=== PATIENT | male | born 2000 | race African-American/Black ===

== ENCOUNTER 2024-02-23 16:46 | Emergency (ER) | payer SELFPAY ==
[2024-02-23] VITALS (9 sets, daily range): BP systolic 151–160; BP diastolic 84–106; PULSE 74–88; RESP 14–18; TEMP 36.7; O2SAT 92–98
--- NOTE | ~2024-02-23 | CT_ITS ---
EXAMINATION: CT brain wo con DATE: 02/23/2024 17:47 INDICATION: Syncopal episode, headache TECHNIQUE: Computed tomography (CT) of the head was performed without intravenous contrast. The mA wa s adjusted according to patient size. Iterative reconstruction technique was employed. Exam dose: 68 1.00 mGy-cm total exam DLP. COMPARISON: None FINDINGS: Cavum septum pellucidum and cavum vergae, anatomic variants; cavum septum pellucidum is par ticularly prominent anteriorly, with splaying of the frontal horns. Otherwise no intracranial mass lesion or hemorrhage, midline shift or mass effect is noted. Normal raphael-white matter differentiation. No subdural or epidural hematoma. No fracture or bone destruction of the cranial vault. The mastoid air cells and included paranasal si nuses are normally developed and aerated. IMPRESSION: Prominent cavum septum pellucidum, cavum vergae Reviewed, dictated and finalized at [facility]. Reviewed, dictated and finalized at [facility].
[2024-02-23 16:54] LABS: Glucose Point of Care 102 mg/dl (65-105)
--- NOTE | 2024-02-23 17:03 | ECG_ITS ---
Test Date: 2024-02-23 17:12:12 Measurements Intervals [place] Rate: 75 P: 57 RI: 152 QRS: 70 QRSD: 105 T: 34 QT: 387 QTc: 433 Interpretive Statements SINUS RHYTHM WITH SINUS ARRHYTHMIA NONSPECIFIC ST ELEVATION IN DIFFUSE LEADS BASELINE ARTIFACT- II, III BORDERLINE ECG No previous ECG available for comparison Electronically Signed On 02-23-2024 17:13:22 CDT by Jono Richards D.O.
[2024-02-23] MEDS: SODIUM CHLORIDE 0.9% IV 1,000 ML 999 ML IV CONT (17:14)
[2024-02-23 17:44] LABS: Basophils Absolute Auto 0.08 K/mm3 (0.00-0.10); Basophils Percent Auto 0.5 % (0.0-1.0); Hematocrit 42.7 % (40.0-54.0); Hemoglobin 14.4 g/dL (14.0-18.0); Immature Granulocyte Absolute 0.06 K/mm3 (0.00-0.00); Immature Granulocyte Percent A 0.4 % (0.0-0.0); Lymphocytes Absolute Auto 1.37 K/mm3 (1.10-4.50); Mean Corpuscular HGB Conc 33.7 g/dL (32-36); Mean Corpuscular Hemoglobin 29.2 pg (27.0-31.0); Mean Corpuscular Volume 86.6 fL (78.0-102.0); Mean Platelet Volume 9.9 fl (8.7-11.0); Monocytes Absolute Auto 1.13 K/mm3 (0.10-0.90); Monocytes Percent Auto 7.4 % (2.0-11.0); Neutrophils Absolute Auto 12.25 K/mm3 (1.70-7.20); Neutrophils Percent Auto 80.7 % (50.0-70.0); Platelet Count Result 257 K/mm3 (150-420); Red Blood Count 4.93 M/mm3 (4.70-6.10); Red Cell Distribution Width 12.7 % (11.6-14.4); White Blood Count 15.2 K/mm3 (4.8-10.8)
--- NOTE | 2024-02-23 17:53 | ED_ITS ---
HPI - Syncope General Chief Complaint: Syncope Stated Complaint: syncope Source: patient Mode of arrival: ambulatory Limitations: no limitations History of Present Illness HPI narrative: This is a 23-year-old male that presents after he had a syncopal episode according to a friend he was just at rest any loss consciousness for couple of minutes no seizure activity no loss of bowel or bladder function no prodrome episode, does have mild headache after the syncopal episode is currently not on any medication no illicit drugs no alcohol or smoking use. No family history of cardiovascular or neurological problems. Currently patient has a mild headache with no neurological deficits no nausea vomiting no chest pain or shortness of breath no fever chills no neck stiffness. complaint: loss of consciousness Onset (ago): hour(s) -: minutes(s) Prodromal symptoms: headache and lightheaded Witnessed: Yes - by Bystander Context: at rest Injuries sustained associated with event: none Current symptoms: headache Treatments prior to arrival: none Related Data Home Medications Medication Instructions Recorded Confirmed No Home Medications 02/23/24 02/23/24 Allergies Allergy/AdvReac Type Severity Reaction Status Date / Time No Known Allergies Allergy Verified 02/23/24 16:52 Review of Systems Review of Systems: All systems reviewed & are unremarkable except as noted in HPI and below PMFSH Past Medical History Medical History Patient denies medical problems Exam Const: General: healthy appearing, no acute distress and alert Nutritional Appearance: well nourished Orientation/consciousness: patient oriented x3 Limitations: no limitations HENMT: Head: normal to inspection Face and sinus: normal facial exam Eyes: Conjunctivae: conjunctivae normal Pupils: Equal, round and reactive pupils present EOM: EOMs intact bilaterally Direct Ophthalmoscopy: no photophobia Neck: Neck: normal visual inspection and no lymphadenopathy Chest: Chest palpation & inspection: normal inspection of the chest Resp: Effort & Inspection: normal respiratory effort Auscultation: clear to auscultation bilaterally Cardio: Rate: regular rate Rhythm: regular rhythm GI: Auscultation: normal bowel sounds Urinary Catheter: Urinary Catheter: patent and draining Back/Spine/Pelvis: Back: no CVA tenderness Skin: General skin exam: normal color Rashes: no rashes Wounds: no wounds Psych: Mental Status: mental status grossly normal Course Course Emergency Course: EKG performed which shows normal sinus rhythm, labs performed and reviewed patient received IV fluids and a blood pressure and vitals are stable blood pressure 151/84 with heart rate of 82 respiratory rate of 14 and O2 sats 98% on. CT scan performed and reviewed. Vital Signs Vital signs: Vital Signs Temperature 36.7 C 02/23/24 16:48 Pulse Rate 82 02/23/24 16:48 Respiratory Rate 14 02/23/24 16:48 Blood Pressure 151/84 H 02/23/24 16:48 Pulse Oximetry 98 02/23/24 16:48 Oxygen Delivery Room Air 02/23/24 16:48 Temperature 36.7 C 02/23/24 16:48 Pulse Rate 74 02/23/24 18:16 Respiratory Rate 16 02/23/24 18:16 Blood Pressure 159/99 H 02/23/24 18:16 Pulse Oximetry 97 02/23/24 18:16 Oxygen Delivery Room Air 02/23/24 17:47 MDM - Syncope Lab Data 02/23/24 17:38 02/23/24 17:38 Labs: Lab Results 02/23/24 02/23/24 Range/Units 16:52 17:38 WBC 15.2 H (4.8-10.8) K/mm3 RBC 4.93 (4.70-6.10) M/mm3 Hgb 14.4 (14.0-18.0) g/dL Hct 42.7 (40.0-54.0) % MCV 86.6 (78.0-102.0) fL MCH 29.2 (27.0-31.0) pg MCHC 33.7 (32-36) g/dL RDW 12.7 (11.6-14.4) % Plt Count 257 (150-420) K/mm3 MPV 9.9 (8.7-11.0) fl Immature Gran % (Auto) 0.4 H (0.0-0.0) % Neut % (Auto) 80.7 H (50.0-70.0) % Lymph % (Auto) 9.0 L (18.0-42.0) % Wheeler % (Auto) 7.4 (2.0-11.0) % Eos % (Auto) 2.0 (1.0-6.0) % Baso % (Auto) 0.5 (0.0-1.0) % Lymph # (Auto) 1.37 (1.10-4.50) K/mm3 Wheeler # (Auto) 1.13 H (0.10-0.90) K/mm3 Eos # (Auto) 0.30 (0.02-0.50) K/mm3 Baso # (Auto) 0.08 (0.00-0.10) K/mm3 Abs Immat Gran (auto) 0.06 H (0.00-0.00) K/mm3 Absolute Neuts (auto) 12.25 H (1.70-7.20) K/mm3 Absolute Nucleated RBC 0.00 (0.00-0.00) K/mm3 Nucleated RBC % 0.0 (0-0.0) % PT 10.9 (9.50-12.1) Seconds INR 1.0 APTT 27.2 (23.9-30.70) Sec Sodium 140 (136-145) mmol/L Potassium 3.6 (3.5-5.1) mmol/L Chloride 102 (98-108) mmol/L Carbon Dioxide 27 (21-32) mmol/L Anion Gap 11 (4-12) mmol/L BUN 16 (7-18) mg/dL Creatinine 1.05 (0.70-1.30) mg/dL Estim Creat Clear Calc 120 ml/min Estimated GFR > 60 (59 - ) Glucose 103 H (70-99) mg/dL POC Capillary Glucose 102 (65-105) mg/dl Calculated Osmolality 291 (285-295) mOsm/kg Lactic Acid 0.9 (0.4-2.0) mmol/L Calcium 8.5 (8.5-10.1) mg/dL Magnesium 1.9 (1.8-2.4) mg/dL Total Bilirubin 0.5 (0.00-1.00) mg/dL AST 13 L (15-37) U/L ALT 28 (16-63) U/L Alkaline Phosphatase 79 (46-116) U/L Troponin I < 4.0 (0.00-60.4) ng/L NT-Pro-B Natriuret Pep 29 (0-125) pg/mL Total Protein 7.4 (6.4-8.2) g/dL Albumin 3.5 (3.4-5.0) g/dL Urine Color Light yellow (Yellow) Urine Appearance Clear (Clear) Urine pH 7.5 (5.0-8.0) Ur Specific [place] 1.020 (1.010-1.020) Urine Protein Trace H (Negative) Urine Glucose (UA) Negative (Negative) Urine Ketones Negative (Negative) Ur Blood (Man) Negative (Negative) Urine Nitrate Negative (Negative) Urine Bilirubin Negative (Negative) Urine Urobilinogen 0.2 (0.2-1.0) mg/dL Leukocyte Esterase Rfl Negative (Negative) [place]/UL Amorphous Sediment Moderate H (None) Urine Mucus Moderate H /lpf Discharge Plan Discharge Clinical Impression: Vasovagal syncope Patient Disposition: Home, Self-Care Condition: Stable Instructions: Antibiotic Form, Syncope (ED) Additional Instructions: Cavum septum pellucidum and cavum vergae Is what was found on CT scan, so certainly follow with primary and possibly establish with some neurologist, otherwise rest if symptoms should recur can always go to the nearest emergency department. Prescriptions: No Action No Home Medications Follow-up/Referrals: UNKNOWN,DOCTOR [Primary Care Provider] - Time of Disposition: 18:20
[2024-02-23 17:56] LABS: Partial Thromboplastin Time 27.2 Sec (23.9-30.70); Prothrombin Time 10.9 Seconds (9.50-12.1)
[2024-02-23 17:59] LABS: Lactic Acid Reflex 0.9 mmol/L (0.4-2.0)
[2024-02-23 18:01] LABS: Add Urine Microscopic? YES; Appearance Urine Clear (Clear); Bilirubin Urine Negative (Negative); Blood Urine Negative (Negative); Color Urine Light Yellow (Yellow); Glucose Urine UA Negative (Negative); Ketones Urine Negative (Negative); Leukocyte Esterase Ur Negative LEU/UL (Negative); Nitrate Urine Negative (Negative); Protein Urine Trace (Negative); Urobilinogen Urine 0.2 mg/dL (0.2-1.0); pH Urine 7.5 (5.0-8.0)
[2024-02-23 18:05] LABS: Alanine Aminotransferase 28 U/L (16-63); Albumin Level 3.5 g/dL (3.4-5.0); Alkaline Phosphatase 79 U/L (46-116); Anion Gap 11 mmol/L (4-12); Aspartate Amino Transferase 13 U/L (15-37); Bilirubin,Total 0.5 mg/dL (0.00-1.00); Blood Urea Nitrogen 16 mg/dL (7-18); Calcium 8.5 mg/dL (8.5-10.1); Carbon Dioxide 27 mmol/L (21-32); Chloride 102 mmol/L (98-108); Estimated CRCL calculation 120 ml/min; Estimated Glomerular Filt Rate > 60; Glucose 103 mg/dL (70-99); Magnesium 1.9 mg/dL (1.8-2.4); NT Pro B Type Natriuretic Pept 29 pg/mL (0-125); Osmolality Calculated 291 mOsm/kg (285-295); Potassium 3.6 mmol/L (3.5-5.1); Sodium 140 mmol/L (136-145); Total Protein 7.4 g/dL (6.4-8.2); Troponin I < 4.0 ng/L (0.00-60.4)
[2024-02-23 18:08] LABS: Amorphous Sediment Urine Moderate
[2024-02-23 18:09] LABS: Mucus Urine Moderate /lpf
== END 2024-02-23 18:22 | disposition home or self-care (01) ==
PROVIDERS: Emergency Provider Emergency Medicine
DX: R55 Syncope and collapse (principal)
CPT/HCPCS: 36415; 70450; 80053; 81001; 82948; 83605; 83735; 83880; 84484; 85025; 85610; 85730; 93005; 96360; 99284; J7030